=== PATIENT | male | born 1970 | race African-American/Black ===

== ENCOUNTER 2016-12-16 18:49 | Emergency (ER) | payer SELFPAY ==
[~2016-12-16] VITALS: Ht 188 cm; Wt 85.0 kg
[2016-12-16] MEDS ORDERED: BACITRACIN ZINC OINT UDPKT TOP ONE (21:00)
[2016-12-16] MEDS ORDERED: TETANUS, DIPHTHERIA, PERTUSSIS VAC/PF 0.5ML (>7YR OLD) IM ONE (21:00)
[2016-12-16 22:10] VITALS: BP 137/83
== END 2016-12-16 23:10 | disposition home or self-care (01) ==
LOC: ER 18:49
DX: S52.502A Unspecified fracture of the lower end of left radius, initial encounter for closed fracture (principal); S60.219A Contusion of unspecified wrist, initial encounter; S60.819A Abrasion of unspecified wrist, initial encounter; V49.9XXA Car occupant (driver) (passenger) injured in unspecified traffic accident, initial encounter; Y93.89 Activity, other specified; Y92.410 Unspecified street and highway as the place of occurrence of the external cause; Y99.8 Other external cause status
CPT/HCPCS: 29125; 73110; 90471; 90715; 99284